=== PATIENT | female | born 1990 | race Caucasian/White ===

== ENCOUNTER → 2018-09-08 | Outpatient (CLI) | payer OTHER ==
[~2018-09-08] MED LIST: MOTRIN 800800 MG/TAB PO; PERCOCET 325 MG1 TA2 PO; PRENATAL; ZANTAC 7575 MG PO
== END ==
LOC: COL.VAS 11:02
DX: R93.89 Abnormal findings on diagnostic imaging of other specified body structures (principal)

== ENCOUNTER 2018-09-14 10:57 | Day surgery (SDC) | payer OTHER ==
[~2018-09-14] VITALS: Ht 175.3 cm; Wt 59.7 kg
[2018-09-14] MEDS ORDERED: XANAX 0.5MG0.5 MG PO (11:14)
[2018-09-14] MEDS ORDERED: LEXAPRO20 MG PO (11:14)
[2018-09-14] MEDS ORDERED: NATURAL IRON65 MG PO (11:14)
[2018-09-14 11:15] VITALS: BP 108/74; PULSE 76; TEMP 97.7
[2018-09-14 15:34] VITALS: BP 101/64; PULSE 69; TEMP 97.7
--- NOTE | 2018-09-14 15:34 | NUR ---
The patient arrived back to [facility] from the recovery room at this time. The patient appears alert and oriented and denies any pain or nausea at this time. The patient's bandaid and gauze dressings to her left chest appear clean, dry, and intact at this time. The patient's post operative vital signs were started at this time. The patient requests to try some apple juice at this time. The patient's is at her bedside. The patient denies any needs at this time. Will continue to monitor the patient.
[2018-09-14 15:49] VITALS: BP 99/56; PULSE 66
--- NOTE | 2018-09-14 15:49 | NUR ---
The patient is sitting up in bed and appears to be resting comfortably at this time. The patient appears to be tolerating the juice well and denies wanting anything further to eat or drink at this time. Will continue to monitor the patient.
[2018-09-14] MEDS ORDERED: NORCO 325 MG-51 TAB PO (15:52)
[2018-09-14 16:04] VITALS: BP 101/57; PULSE 69
--- NOTE | 2018-09-14 16:04 | NUR ---
The patient appears to be resting comfortably on the cart. The patient denies any pain or nausea at this time. The patient's vital signs appear stable. The patient's remains at her bedside at this time. Will continue to monitor the patient.
--- NOTE | 2018-09-14 16:17 | NUR ---
Discharge instructions were reviewed with the patient and her at this time. They both verbalized understanding and have no questions for the nurse at this time. The patient's IV to her right hand was removed and a pressure dressing was applied to the site. The nurse instructed the patient to get dressed and notify the staff when she is ready to be escorted out.
--- NOTE | 2018-09-14 16:28 | NUR ---
The patient ambulated out independently using a steady gait and appeared to tolerate the activity well escorted by RHONDA Finley. The patient's belongings and discharge paperwork were sent with her. The patient's is present to drive her home.
== END 2018-09-14 16:28 | disposition home or self-care (01) ==
LOC: SDCO 10:57
DX: C81.94 Hodgkin lymphoma, unspecified, lymph nodes of axilla and upper limb (principal); D63.8 Anemia in other chronic diseases classified elsewhere; Z79.899 Other long term (current) drug therapy
CPT/HCPCS: C1788; J0690; J1644; J2250; J2704; J3010; J7120

== ENCOUNTER 2018-09-26 16:07 | Emergency (ER) | payer OTHER ==
[~2018-09-26] VITALS: Ht 175.3 cm; Wt 60.6 kg
[~2018-09-26 16:07] MED LIST changes: +LEXAPRO20 MG PO; +NATURAL IRON65 MG PO; +NORCO 325 MG-51 TAB PO; +XANAX 0.5MG0.5 MG PO
[2018-09-26 16:13] VITALS: TEMP 98.4
[2018-09-26 16:59] LABS: BASO % 0.5 % (0.0-2.0); EOS # 0.5 (0.0-0.7); EOS % 11.7 % (0-4.0); GRAN # 1.8 (1.4-6.5); GRAN % 47.3 % (42.2-75.2); HEMOGLOBIN 10.7 g/dl (12.5-16.0); LYMPH # 1.4 (1.2-3.4); LYMPH % 37.1 % (20.0-51.0); MEAN CELL VOLUME 81 fl (80.0-100.0); MEAN CORPUSCULAR HEMOGLOBIN 25 pg (27.0-31.0); MEAN CORPUSCULAR HGB CONC 31 g/dl (33.0-37.0); MEAN PLATELET VOLUME 11.2 fl (7.4-10.4); MONO # 0.1 (0.1-0.6); MONO % 2.6 % (1.7-9.3); PLATELET COUNT 258 K/mm3 (130-400); RED BLOOD COUNT 4.32 M/mm3 (4.10-5.30)
[2018-09-26 17:10] LABS: HEMATOCRIT 35.1 % (37.0-47.0)
[2018-09-26] MEDS ORDERED: ZYLOPRIM 300MG300 MG PO (17:10)
[2018-09-26] MEDS ORDERED: COMPAZINE 110 MG/TAB PO (17:11)
[2018-09-26] MEDS ORDERED: XANAX 0.5MG0.5 MG PO (17:11)
[2018-09-26] MEDS ORDERED: IRON18 MG1 (17:12)
[2018-09-26] MEDS ORDERED: LEXAPRO20 MG PO (17:12)
[2018-09-26 17:16] LABS: ALANINE AMINOTRANSFERASE 16 U/L (9-52); ALBUMIN 4.3 gm/dL (3.5-5.0); ALKALINE PHOSPHATASE 78 U/L (50-136); ANION GAP 9 mmol/L (7-16); AST,SGOT 32 U/L (15-37); BILIRUBIN,TOTAL 0.1 mg/dL (0.0-1.0); BLOOD UREA NITROGEN 13 mg/dL (7-17); CALCIUM 9.6 mg/dL (8.4-10.2); CARBON DIOXIDE 29 mmol/L (22-30); CHLORIDE 102 mmol/L (98-107); CREATININE, serum 0.61 mg/dL (0.52-1.25); GLUCOSE 102 mg/dL (74-106); POTASSIUM 4.1 mmol/L (3.4-5.0); SODIUM 140 mmol/L (137-145); TOTAL PROTEIN 7.6 gm/dL (6.4-8.2)
[2018-09-26 17:36] LABS: TROPONIN-I < 0.012 ng/mL (0.000-0.035)
[2018-09-26 18:35] VITALS: BP 102/69
[2018-09-26 19:10] VITALS: PULSE 78
== END 2018-09-26 19:10 | disposition home or self-care (01) ==
LOC: COL.ER 16:07
PROVIDERS: Emergency Medicine
DX: R07.89 Other chest pain (principal); R06.02 Shortness of breath; Z85.71 Personal history of Hodgkin lymphoma
CPT/HCPCS: J7030; Q9967

== ENCOUNTER → 2018-11-04 | Outpatient (CLI) | payer OTHER ==
[~2018-11-04] MED LIST changes: +COMPAZINE 110 MG/TAB PO; +IRON18 MG1; +ZYLOPRIM 300MG300 MG PO
== END ==
LOC: COL.VAS 11:00
DX: C81.12 Nodular sclerosis Hodgkin lymphoma, intrathoracic lymph nodes (principal); C50.919 Malignant neoplasm of unspecified site of unspecified female breast

== ENCOUNTER → 2018-11-28 | Outpatient (CLI) | payer OTHER | LOC: COL.PUL 07:59 | DX: C81.12 Nodular sclerosis Hodgkin lymphoma, intrathoracic lymph nodes (principal) ==

== ENCOUNTER → 2019-01-31 | Outpatient (CLI) | payer OTHER | LOC: COL.PUL 08:00 | DX: R94.2 Abnormal results of pulmonary function studies (principal) ==

== ENCOUNTER → 2019-02-09 | Outpatient (CLI) | payer OTHER | LOC: COL.VAS 10:27 | DX: Z79.899 Other long term (current) drug therapy (principal) ==

== ENCOUNTER → 2019-03-28 | Outpatient (CLI) | payer OTHER | LOC: COL.PUL 03-15 10:00 | DX: R06.02 Shortness of breath (principal) ==

== ENCOUNTER → 2019-05-01 | Outpatient (CLI) | payer OTHER | LOC: COL.PUL 09:56 | DX: R06.02 Shortness of breath (principal) | CPT/HCPCS: J7674 ==

== ENCOUNTER 2019-08-20 08:43 | Emergency (ER) | payer OTHER ==
[~2019-08-20] VITALS: Ht 175.3 cm; Wt 63.6 kg
[2019-08-20 08:47] VITALS: BP 117/77; TEMP 98.7
[2019-08-20 09:28] LABS: BASO % 0.4 % (0.0-2.0); EOS # 0.1 (0.0-0.7); EOS % 2.2 % (0-4.0); GRAN # 3.2 (1.4-6.5); GRAN % 70.3 % (42.2-75.2); HEMATOCRIT 41.2 % (37.0-47.0); LYMPH # 0.8 (1.2-3.4); LYMPH % 17.9 % (20.0-51.0); MEAN CELL VOLUME 88 fl (80.0-100.0); MEAN CORPUSCULAR HEMOGLOBIN 28 pg (27.0-31.0); MEAN CORPUSCULAR HGB CONC 32 g/dl (33.0-37.0); MEAN PLATELET VOLUME 9.7 fl (7.4-10.4); MONO # 0.4 (0.1-0.6); MONO % 8.8 % (1.7-9.3); PLATELET COUNT 229 K/mm3 (130-400); RED BLOOD COUNT 4.67 M/mm3 (4.10-5.30)
[2019-08-20 09:45] LABS: ALANINE AMINOTRANSFERASE 18 U/L (9-52); ALBUMIN 4.9 gm/dL (3.5-5.0); ALKALINE PHOSPHATASE 74 U/L (50-136); ANION GAP 13 mmol/L (7-16); AST,SGOT 25 U/L (15-37); BILIRUBIN,TOTAL 0.5 mg/dL (0.0-1.0); BLOOD UREA NITROGEN 16 mg/dL (7-17); CALCIUM 9.4 mg/dL (8.4-10.2); CARBON DIOXIDE 24 mmol/L (22-30); CHLORIDE 105 mmol/L (98-107); CREATININE, serum 0.79 (0.52-1.25); GLUCOSE 98 mg/dL (74-106); POTASSIUM 4.3 mmol/L (3.4-5.0); SODIUM 142 mmol/L (137-145); TOTAL PROTEIN 7.7 gm/dL (6.4-8.2)
[2019-08-20 09:47] LABS: C-REACTIVE PROTEIN < 0.5 mg/dL (0.0-0.9)
[2019-08-20] MEDS ORDERED: FLEXERIL 1010 MG/TAB PO (11:22)
[2019-08-20 11:46] VITALS: PULSE 100
== END 2019-08-20 11:46 | disposition home or self-care (01) ==
LOC: COL.ER 08:43
PROVIDERS: Physician Assistant
DX: M54.6 Pain in thoracic spine (principal)
CPT/HCPCS: J1170; J1885; J2405; J7030; Q9967